=== PATIENT | female | born 1990 | race Caucasian/White ===

== ENCOUNTER → 2024-01-13 08:40 | Outpatient (REF) | payer BC, SELFPAY | LOC: CPAP 08:40 | PROVIDERS: ATTENDING PHYSICIAN Obstetrics & Gynecology Gynecology | DX: Z01.419 Encounter for gynecological examination (general) (routine) without abnormal findings (principal); N87.9 Dysplasia of cervix uteri, unspecified | CPT/HCPCS: G0123 ==

== ENCOUNTER → 2024-02-02 15:06 | Outpatient (REF) | payer BC, SELFPAY | LOC: MRI 3T 15:06 | PROVIDERS: ATTENDING PHYSICIAN Psychiatry & Neurology Neurology; FAMILY PHYSICIAN Nurse Practitioner Adult Health | DX: G43.019 Migraine without aura, intractable, without status migrainosus (principal) | CPT/HCPCS: 70553; A9575 ==

== ENCOUNTER → 2024-06-25 06:15 | Outpatient (REF) | payer BC, SELFPAY ==
[2024-06-25 09:42] LABS: % Basophils 0.2 % (0-2); % Eosinophils 1.6 % (0-6); % Immature Granulocytes 0.2 % (0-0.5); % Lymphocytes 44.5 % (20.5-51.1); % Monocytes 5.7 % (1.7-9.3); % Neutrophils 47.8 % (42.2-75.2); Absolute Eosinophils 0.2 10^3/uL (0-0.7); Absolute Lymphocytes 4.1 10^3/uL (1.2-3.4); Absolute Monocytes 0.5 10^3/uL (0.1-0.6); Absolute Neutrophils 4.4 10^3/uL (1.4-6.5); Hemoglobin 13.2 g/dL (12.0-16.0); Mean Corp Hgb Conc. 33.8 g/dL (33.0-37.0); Mean Corpuscular Hgb 32.5 pg (27.0-31.0); Mean Corpuscular Volume 96.1 fL (81.0-99.0); Mean Platelet Volume 10.4 fL (7.4-10.4); Nucleated Red Blood Cells % 0 %; Platelet Count 300 10^3/uL (130-400); Red Blood Cell Count 4.06 10^6/uL (4.20-5.40); Red Cell Dist. Width 11.8 % (11.5-14.5); White Blood Cell Count 9.2 10^3/uL (4.8-10.8)
[2024-06-25 10:03] LABS: ALT (SGPT) 19 U/L (0-35); AST (SGOT) 21 U/L (14-36); Albumin 4.2 g/dl (3.5-5.0); Alkaline Phosphatase 64 U/L (38-126); Blood Urea Nitrogen 19 mg/dl (7-17); Calcium 9.6 mg/dl (8.4-10.2); Carbon Dioxide 26 mmol/L (22-30); Chloride 104 mmol/L (98-107); Glucose 96 mg/dl (70-99); HDL Cholesterol 49 mg/dl; LDL Cholesterol, Calculated 132 mg/dl; Potassium 4.2 mmol/L (3.5-5.1); Sodium 137 mmol/L (135-145); Total Bilirubin 0.4 mg/dl (0.2-1.3); Total Cholesterol 220 mg/dl (50-199); Triglyceride 197 mg/dl (10-149); Very Low Density Lipoprotein 39 mg/dl (0-30); eGFR > 60.00
[2024-06-25 10:28] LABS: TSH Reflex To Free T4 2.66 uIU/ml (0.47-4.68)
== END ==
LOC: HWLAB 06:15
PROVIDERS: ATTENDING PHYSICIAN Physician Assistant Medical
DX: Z00.01 Encounter for general adult medical examination with abnormal findings (principal); Z13.1 Encounter for screening for diabetes mellitus; Z13.220 Encounter for screening for lipoid disorders; Z13.0 Encounter for screening for diseases of the blood and blood-forming organs and certain disorders involving the immune mechanism; Z13.29 Encounter for screening for other suspected endocrine disorder
CPT/HCPCS: 36415; 80053; 80061; 84443; 85025

== ENCOUNTER → 2025-03-25 09:50 | Outpatient (REF) | payer BC, SELFPAY ==
[2025-03-25 10:47] LABS: Urine Albumin 1+ (Neg - Trace); Urine Bilirubin Negative (Negative); Urine Character Clear (Clear); Urine Color Yellow; Urine Glucose Negative (Negative); Urine Ketone Negative (Negative); Urine Leukocyte 2+ (Negative); Urine Nitrite Negative (Negative); Urine Occult Blood 1+ (Negative); Urine Urobilinogen Negative (Neg - 1+)
[2025-03-25 11:50] LABS: Urine Hyaline Cast 0-2 /LPF (0-2); Urine Mucus Moderate; Urine Squamous Cell 21-25 /LPF (Few)
[2025-03-25 11:51] LABS: Urine Bacteria Moderate (Negative)
[2025-03-25 11:52] LABS: Urine Red Blood Cell 0-2 /HPF (0-2)
== END ==
LOC: REG 09:50
PROVIDERS: ATTENDING PHYSICIAN Nurse Practitioner; FAMILY PHYSICIAN Physician Assistant Medical
DX: N39.0 Urinary tract infection, site not specified (principal); N20.0 Calculus of kidney
CPT/HCPCS: 74018; 81003; 81015; 87086

== ENCOUNTER 2025-03-27 09:24 | Emergency (ER) | payer BC, SELFPAY ==
[2025-03-27 09:25] VITALS: BP 138/92
[2025-03-27 09:52] VITALS: BMI 31.0
--- NOTE | 2025-03-27 09:56 | ED.GENMED ---
History of Present Illness
General
Chief Complaint: Urinary Symptoms
Source: patient
Exam Limitations: none
Time Seen by Provider: 03/27/25 09:31
Nursing documentation reviewed up to this point in time: agreed with
History of Present Illness
History of Present Illness:
Patient presents to ED secondary to persistent left flank pain along with dysuria and urinary frequency over the past 5 days. Denies fever or chills. Denies nausea or vomiting. Denies inability to urinate. Denies blood with urination. Patient
does have history of kidney stones 10 years ago, but states that her symptoms are different. Patient spoke with her urologist on Tuesday. Patient had an outpatient urinalysis done and was started empirically on Bactrim for the past 2 days, without
improving symptoms. Denies loss of appetite. Denies vaginal bleeding or discharge. Denies trauma.
Past History
Past History
ED Past Medical History: None; Negative HTN or Hypercholesterolemia
ED Past Surgical History: None; Negative Cardiac
Social History
Tobacco: Non-smoker
Alcohol: None
Drug: None
Personal: Single
Family History
Family History: Hypertension
Review of Systems
Review of Systems
Allergies reviewed?: Yes
Constitutional: Reports no symptoms; Denies fever or chills
ABD/GI: Denies abdominal pain, nausea or vomiting
: Reports dysuria, frequency, flank pain and urgency; Denies incontinence or bleeding
Musculoskeletal: Reports no symptoms
Skin: Reports no symptoms
Neurological: Reports no symptoms
Phy Exam
Physical Exam
Physical Exam:
Physical Exam
General: no apparent distress, not acutely ill. afebrile
Head: nc/at. eomi
Neck: supple. normal range of motion.
Abdomen: normal bowel sounds. not tender.
Neuro: alert and oriented x 3. no focal neurological deficits
Skin: no rash
Psychiatric: well kept. interactive and cooperative
Extremities: no edema. no calf tenderness.
Course
Orders/Labs/Results
Orders:
Orders
03/27/25 09:52
US Renal Only W/O Bladder Urgent
Comment:
Reason For Exam: left flank pain w hx kidney stone
Vital Signs
Initial and Last Documented VS:
Initial Vital Signs
Temp Pulse Resp BP Pulse Ox
98.2 F 86 16 138/92 97
03/27/25 09:25 03/27/25 09:25 03/27/25 09:25 03/27/25 09:25 03/27/25 09:25
Last Documented Vital Signs
Temp Pulse Resp BP Pulse Ox
98.2 F 86 16 138/92 97
03/27/25 09:25 03/27/25 09:25 03/27/25 09:25 03/27/25 09:25 03/27/25 09:25
MDM/Problems Addressed
MDM/Problems Addressed:
Urinalysis and urine culture results from 03/25/2025 reviewed - lactobacillus noted.
Will obtain renal US and likely switch abx to Ciprofloxacin, along with referral to PCP / urology for re-evaluation
Renal ultrasound report reviewed and discussed with patient. Patient otherwise is afebrile, hemodynamically stable, and appears nontoxic at time of discharge.
*Critical Care Note
Total Time (30-74mins, 75-104mins- exclusive of procedures): Not Applicable
ED Attending Note
-
Portions of this chart may have been created with voice recognition software.� Occasional wrong word or��sound alike� substitutions may have occurred due to the inherent limitations of voice recognition software.
Discharge Plan
Departure
Patient Disposition: Home (Routine Discharge)
Date of Disposition: 03/27/25
Time of Disposition: 11:34
Patient with high blood pressure during this ER visit?: Yes
Condition: Good
Discharge Problem:
UTI (urinary tract infection)
Instructions: Kidney Stones (DC), Urinary Tract Infection, Adult (DC)
Prescriptions:
New
ciprofloxacin HCl 500 mg tablet
500 mg PO BID Qty: 14 0RF
No Action
sertraline [Zoloft] 50 mg Tablet
50 mg PO DAILY
Referrals:
Laura Hurtado PA-C [Family Provider] -
Activity Restrictions/Additional Instructions:
As discussed, please follow-up with your primary care physician and/or urologist for further evaluation and treatment. Please return to ED with worsening symptoms. Your prescription has been sent electronically to [facility] pharmacy in [place].
Interventions
Interventions:
*Risk Screen - Suicide Last Done: 03/27/25 09:52
*General Assessment Last Done: 03/27/25 09:52
*Neglect/Abuse Screening Last Done: 03/27/25 09:52
*ED- Fall Risk Assessment Last Done: 03/27/25 09:52
*ED COVID-19 Vaccine History Last Done: 03/27/25 09:52
*Nursing Disposition Last Done: 03/27/25 11:41
IP-Saofrj-Pldumxcvot Assessment Last Done: 03/27/25 09:54
ED-Female Genitourinary Assessment Last Done: 03/27/25 09:54
Discharge Date and Time
Discharge Date/Time: 03/27/25 11:46
Print Language: PASHTO
== END 2025-03-27 11:46 | disposition home or self-care (01) ==
LOC: EMR 09:24
PROVIDERS: EMERGENCY PHYSICIAN Emergency Medicine; FAMILY PHYSICIAN Physician Assistant Medical
DX: N39.0 Urinary tract infection, site not specified (principal); Z87.442 Personal history of urinary calculi
CPT/HCPCS: 99284; 76775

== ENCOUNTER → 2025-06-27 07:13 | Outpatient (REF) | payer BC, SELFPAY ==
[2025-06-27 08:44] LABS: Hematocrit 37.2 % (37.0-47.0); Hemoglobin 12.4 g/dL (12.0-16.0); Mean Corp Hgb Conc. 33.3 g/dL (33.0-37.0); Mean Corpuscular Volume 95.4 fL (81.0-99.0); Nucleated Red Blood Cells % 0 %; Platelet Count 252 10^3/uL (130-400); Red Cell Dist. Width 12.2 % (11.5-14.5)
[2025-06-27 10:33] LABS: ALT (SGPT) 16 U/L (0-35); AST (SGOT) 18 U/L (14-36); Albumin 4.1 g/dl (3.5-5.0); Alkaline Phosphatase 57 U/L (38-126); Blood Urea Nitrogen 16 mg/dl (7-17); Calcium 9.1 mg/dl (8.4-10.2); Carbon Dioxide 21 mmol/L (22-30); Chloride 109 mmol/L (98-107); Glucose 86 mg/dl (70-99); HDL Cholesterol 47 mg/dl; LDL Cholesterol, Calculated 149 mg/dl; Potassium 4.5 mmol/L (3.5-5.1); Sodium 138 mmol/L (135-145); Total Protein 7.1 g/dl (6.3-8.2); Very Low Density Lipoprotein 24 mg/dl (0-30); eGFR > 60.00
== END ==
LOC: REG 07:13
PROVIDERS: ATTENDING PHYSICIAN Physician Assistant Medical
DX: Z00.01 Encounter for general adult medical examination with abnormal findings (principal); Z13.1 Encounter for screening for diabetes mellitus; Z13.220 Encounter for screening for lipoid disorders; Z13.29 Encounter for screening for other suspected endocrine disorder; Z13.0 Encounter for screening for diseases of the blood and blood-forming organs and certain disorders involving the immune mechanism
CPT/HCPCS: 36415; 80053; 80061; 84443; 85025

== ENCOUNTER 2025-08-01 06:24 | Day surgery (SDC) | payer BC, SELFPAY | END 2025-08-01 11:58 | disposition home or self-care (01) | LOC: GI 06:24 | PROVIDERS: ATTENDING PHYSICIAN Internal Medicine | DX: K62.5 Hemorrhage of anus and rectum (principal); D12.3 Benign neoplasm of transverse colon | CPT/HCPCS: 45385; 88305 ==